=== PATIENT | female | born 1955 | race Hispanic/Latino ===

== ENCOUNTER → 2017-12-13 | Outpatient (CLI) | payer OTHER ==
[~2017-12-13] MED LIST: AMLO5TAB2 PO; ASPI-1012 PO; ATOR40TA71 PO; CHOL50004 PO; CINN500C PO; HYDR-2132 PO; HYDR12.54 PO; ICOS1CAP PO; LINA290C PO; LIRA0.6P SQ; LISI10TA7 PO; PREG100C PO; PROP40TA7 PO; SERT100T12 PO; TRAZ-147 PO
== END | disposition home or self-care (01) ==
LOC: OIH 14:44
PROVIDERS: ATTEND Internal Medicine Cardiovascular Disease
DX: Z13.6 Encounter for screening for cardiovascular disorders (principal)
CPT/HCPCS: 75571

== ENCOUNTER 2023-03-11 06:56 | Day surgery (SDC) | payer OTHER ==
[2023-03-06 09:45] LABS: BASOPHILS % (AUTO) 0.3 % (0.0-5.0); EOSINOPHILS % (AUTO) 4.9 % (0.0-8.0); HEMATOCRIT 39.7 % (36-48); LYMPHOCYTES % (AUTO) 16.9 % (21.0-51.0); MEAN CORPUSCULAR HEMOGLOBIN 34.1 pg (27.0-33.0); MEAN CORPUSCULAR HGB CONC 31.7 g/dL (32.0-36.0); MEAN CORPUSCULAR VOLUME 107.3 fL (79-99); NEUTROPHILS % (AUTO) 71.6 % (40.0-77.0); PLATELET COUNT (AUTO) 121 K/uL (130-400); RED CELL DISTRIBUTION WIDTH 13.5 % (11.0-15.5); WHITE BLOOD COUNT (AUTO) 9.1 K/uL (4.8-10.8)
[2023-03-06 09:58] LABS: ALBUMIN 3.4 g/dL (3.5-5.0); CREATININE 5.5 mg/dL (0.5-1.5); POTASSIUM 4.3 mmol/L (3.5-5.1); TOTAL PROTEIN, SERUM 7.6 g/dL (6.0-8.3)
[2023-03-06 10:05] VITALS: BP 143/79
[2023-03-06 11:08] LABS: INR 0.94 (0.85-1.15); PARTIAL THROMBOPLASTIN TIME 25.9 SEC (26.3-35.5); PROTHROMBIN TIME 10.3 SEC (9.6-11.6)
[2023-03-11] VITALS (18 sets, daily range): BP systolic 87–129; BP diastolic 53–83
[~2023-03-11] VITALS: Ht 154.9 cm; Wt 113.4 kg
[~2023-03-11 06:56] MED LIST changes: +AEC81 PO; -AMLO5TAB2 PO; -ASPI-1012 PO; +ATOR10 PO; -ATOR40TA71 PO; +BUPR-93 PO; -CHOL50004 PO; -CINN500C PO; +DIPH-1242 PO; +FLUT1AER IH; +FOLI1TAB85 PO; +FOLIC ACID PO; -HYDR-2132 PO; -HYDR12.54 PO; +INSU100I24 SQ; -LINA290C PO; -LIRA0.6P SQ; -LISI10TA7 PO; +MONT-39 PO; +PHEN95TA44 PO; -PREG100C PO; +PREG25CA18 PO; +PREG50CA63 PO; +SEMA2PEN SQ; -SERT100T12 PO; +SEVE800T7 PO; -TRAZ-147 PO; +TRAZ-187 PO; +VITAMIN B12 PO
[2023-03-11 07:32] LABS: CREATININE 5.8 mg/dL (0.5-1.5); POTASSIUM 3.7 mmol/L (3.5-5.1)
[2023-03-11] MEDS: CEFAZOLIN SODIUM 2 GM VIAL ONE ×2 (07:48→09:00)
[2023-03-11] MEDS ORDERED: 0.9% NACL 500ML IV.SOLN 500 ML IV ONE (07:49)
[2023-03-11] MEDS ORDERED: PHENYLEPHRINE HCL 10 MG/ML 1ML VIAL IV ONE (08:14)
[2023-03-11] MEDS ORDERED: LIDOCAINE PF 100MG/5ML (2%) SYRINGE 5ML ONE (08:14)
[2023-03-11] MEDS ORDERED: ROCURONIUM 10MG/1ML SYR 10 MG/ML ML ONE (08:14)
[2023-03-11] MEDS ORDERED: PROPOFOL 10 MG/ML 20ML VIAL IV ONE (08:14)
[2023-03-11] MEDS ORDERED: KETAMINE 50MG/ML SYRINGE 50 MG/ML DISP.SYRIN ONE (08:17)
[2023-03-11] MEDS ORDERED: HEPARIN 10,000 UNIT/10ML (1,000 UNIT/ML) VIAL ONE (09:29)
[2023-03-11] MEDS ORDERED: PROTAMINE SULFATE 10 MG/ML 5 ML VIAL ONE (10:26)
[2023-03-11] MEDS ORDERED: PROTAMINE SULFATE 10 MG/ML 25ML VIAL IV ONE (10:27)
[2023-03-11] MEDS ORDERED: NEOSTIGMINE 5MG/5ML SYR IV ONE (10:34)
[2023-03-11] MEDS ORDERED: ONDANSETRON 4MG INJ ONE (10:34)
[2023-03-11] MEDS ORDERED: GLYCOPYRROLATE 1 MG/5 ML SYRINGE ONE (10:34)
[2023-03-11] MEDS ORDERED: FENTANYL CITRATE PF 50 MCG/1 ML 2ML VIAL ONE (11:48)
== END 2023-03-11 13:15 | disposition home or self-care (01) ==
LOC: DAH 06:56
PROVIDERS: ATTEND Student in an Organized Health Care Education/Training Program
DX: E11.22 Type 2 diabetes mellitus with diabetic chronic kidney disease (principal); I12.0 Hypertensive chronic kidney disease with stage 5 chronic kidney disease or end stage renal disease; N18.6 End stage renal disease; Z20.822 Contact with and (suspected) exposure to COVID-19; F41.9 Anxiety disorder, unspecified; F32.A Depression, unspecified; J44.9 Chronic obstructive pulmonary disease, unspecified; E78.5 Hyperlipidemia, unspecified; E66.01 Morbid (severe) obesity due to excess calories; Z99.2 Dependence on renal dialysis; Z86.73 Personal history of transient ischemic attack (TIA), and cerebral infarction without residual deficits; Z98.890 Other specified postprocedural states; Z90.710 Acquired absence of both cervix and uterus; Z96.653 Presence of artificial knee joint, bilateral; Z68.41 Body mass index [BMI] 40.0-44.9, adult; Z79.899 Other long term (current) drug therapy; Z79.82 Long term (current) use of aspirin; Z79.01 Long term (current) use of anticoagulants
CPT/HCPCS: 80053; 85025; 85610; 85730; 86850 ×2; 86900 ×2; 86901 ×2; 87426; 36415 ×2; 93005; 36830; 80048; 82948 ×2; A6260; A4663; J7120; J7040; J3010; J3490 ×2; J2710; J2001; J1644; J2704; J2405; J2370; J0690; A4649 ×3; C1713 ×2; A4215; A4223; A4222; A4221; J2720 ×2

== ENCOUNTER 2023-05-09 17:25 | Inpatient (IN) | payer OTHER ==
[~2023-05-09] VITALS: Ht 152.4 cm; Wt 113.0 kg
[2023-05-09 20:29] LABS: BASOPHILS # (AUTO) 0.02 K/uL (0.00-0.20); BASOPHILS % (AUTO) 0.2 % (0.0-5.0); EOSINOPHILS # (AUTO) 0.25 K/uL (0.00-0.70); HEMATOCRIT 34.4 % (36-48); IMMATURE GRANULOCYTE ABSOLUTE 0.03 K/uL (0-1); LYMPHOCYTES # (AUTO) 1.8 K/uL (1.0-4.8); LYMPHOCYTES % (AUTO) 21.6 % (21.0-51.0); MEAN CORPUSCULAR HEMOGLOBIN 35.5 pg (27.0-33.0); MEAN CORPUSCULAR VOLUME 104.2 fL (79-99); MONOCYTES # (AUTO) 0.6 K/uL (0.1-1.0); MONOCYTES % (AUTO) 6.7 % (3.0-13.0); NEUTROPHILS # (AUTO) 5.6 K/uL (1.8-7.7); NEUTROPHILS % (AUTO) 68.1 % (40.0-77.0); PLATELET COUNT (AUTO) 136 K/uL (130-400); WHITE BLOOD COUNT (AUTO) 8.2 K/uL (4.8-10.8)
[2023-05-09 20:44] LABS: CREATININE 6.2 mg/dL (0.5-1.5); POTASSIUM 4.3 mmol/L (3.5-5.1)
[2023-05-09 20:49] LABS: ALBUMIN 3.3 g/dL (3.5-5.0); BILIRUBIN,TOTAL 0.5 mg/dL (0.2-1.0); TOTAL PROTEIN, SERUM 7.7 g/dL (6.0-8.3)
[2023-05-09] MEDS ORDERED: IOHEXOL 350 MG/ML 100ML INFUS..BTL IV ONE (21:07)
[2023-05-10] VITALS (17 sets, daily range): BP systolic 98–119; BP diastolic 48–66; PULSE 72–89; RESP 16–20; TEMP 97.2; O2SAT 96–98
[2023-05-10] MEDS ORDERED: HYDROCODONE/ACETAMINOPHEN 5/325 MG TAB PO PRN (00:30)
[2023-05-10] MEDS ORDERED: ONDANSETRON 4MG INJ IV PRN (00:30)
[2023-05-10] MEDS ORDERED: MAGNESIUM 2GM PREMIX 50ML 50 ML IV PRN (00:30)
[2023-05-10] MEDS ORDERED: ACETAMINOPHEN 325 MG TAB PO PRN ×2 (00:30)
[2023-05-10] MEDS: HYDROMORPHONE 1 MG INJ IV PRN ×2 (01:06→05:33)
[2023-05-10 03:06] LABS: BASOPHILS # (AUTO) 0.02 K/uL (0.00-0.20); BASOPHILS % (AUTO) 0.2 % (0.0-5.0); EOSINOPHILS # (AUTO) 0.26 K/uL (0.00-0.70); EOSINOPHILS % (AUTO) 3.1 % (0.0-8.0); HEMATOCRIT 30.1 % (36-48); IMMATURE GRANULOCYTE ABSOLUTE 0.06 K/uL (0-1); LYMPHOCYTES % (AUTO) 23.2 % (21.0-51.0); MEAN CORPUSCULAR HEMOGLOBIN 34.9 pg (27.0-33.0); MEAN CORPUSCULAR HGB CONC 33.6 g/dL (32.0-36.0); MEAN CORPUSCULAR VOLUME 104.2 fL (79-99); MONOCYTES # (AUTO) 0.7 K/uL (0.1-1.0); MONOCYTES % (AUTO) 8.4 % (3.0-13.0); NEUTROPHILS # (AUTO) 5.4 K/uL (1.8-7.7); NEUTROPHILS % (AUTO) 64.4 % (40.0-77.0); PLATELET COUNT (AUTO) 116 K/uL (130-400); RED BLOOD CELL COUNT(AUTO) 2.89 MIL/uL (4.00-5.50); RED CELL DISTRIBUTION WIDTH 13.1 % (11.0-15.5); WHITE BLOOD COUNT (AUTO) 8.4 K/uL (4.8-10.8)
[2023-05-10 03:16] LABS: CREATININE 6.3 mg/dL (0.5-1.5); MAGNESIUM 1.8 mg/dL (1.80-2.40); PHOSPHORUS 4.5 mg/dL (2.5-4.9); POTASSIUM 4.2 mmol/L (3.5-5.1)
[2023-05-10 03:20] LABS: SARS-CoV-2, RNA, NAAT NEGATIVE SARS CoV-2 (NEGATIVE)
[2023-05-10 03:47] LABS: INR < 0.93 (0.85-1.15); PARTIAL THROMBOPLASTIN TIME 22.4 SEC (26.3-35.5); PROTHROMBIN TIME 9.9 SEC (9.6-11.6)
[2023-05-10 04:21] LABS: HEMOGLOBIN A1C 5.9 % (4.0-6.0)
[2023-05-10] MEDS: INSULIN HUMULIN R 100 UNIT/ML 3ML SQ SCH ×4 (06:01→21:00)
[2023-05-10] MEDS: PANTOPRAZOLE 40 MG/VIAL IVP SCH (10:51)
[2023-05-10] MEDS ORDERED: HYDROMORPHONE 1 MG INJ IVP PRN (11:00)
[2023-05-10] MEDS: IBUPROFEN 800 MG TAB PO SCH ×2 (11:34→19:42)
[2023-05-10] MEDS: TRAMADOL HCL 50 MG TABLET PO PRN (17:13)
[2023-05-11] VITALS (14 sets, daily range): BP systolic 81–110; BP diastolic 53–81; PULSE 81–100; RESP 16–20; TEMP 97.4; O2SAT 96–97
[2023-05-11] MEDS ORDERED: HEPARIN 5,000 UNIT VIAL IV STA (00:13)
[2023-05-11] MEDS: IBUPROFEN 800 MG TAB PO SCH ×3 (03:09→19:59)
[2023-05-11 05:29] LABS: BASOPHILS # (AUTO) 0.02 K/uL (0.00-0.20); BASOPHILS % (AUTO) 0.3 % (0.0-5.0); EOSINOPHILS # (AUTO) 0.22 K/uL (0.00-0.70); EOSINOPHILS % (AUTO) 3.1 % (0.0-8.0); HEMATOCRIT 27.2 % (36-48); IMMATURE GRANULOCYTE ABSOLUTE 0.03 K/uL (0-1); LYMPHOCYTES # (AUTO) 1.3 K/uL (1.0-4.8); LYMPHOCYTES % (AUTO) 18.9 % (21.0-51.0); MEAN CORPUSCULAR HEMOGLOBIN 34.7 pg (27.0-33.0); MEAN CORPUSCULAR HGB CONC 33.5 g/dL (32.0-36.0); MEAN CORPUSCULAR VOLUME 103.8 fL (79-99); MONOCYTES # (AUTO) 0.7 K/uL (0.1-1.0); MONOCYTES % (AUTO) 9.2 % (3.0-13.0); NEUTROPHILS # (AUTO) 4.8 K/uL (1.8-7.7); NEUTROPHILS % (AUTO) 68.1 % (40.0-77.0); PLATELET COUNT (AUTO) 96 K/uL (130-400); RED BLOOD CELL COUNT(AUTO) 2.62 MIL/uL (4.00-5.50); WHITE BLOOD COUNT (AUTO) 7.1 K/uL (4.8-10.8)
[2023-05-11 05:37] LABS: CREATININE 5.3 mg/dL (0.5-1.5); POTASSIUM 4.1 mmol/L (3.5-5.1)
[2023-05-11] MEDS: INSULIN HUMULIN R 100 UNIT/ML 3ML SQ SCH ×4 (06:34→20:58)
[2023-05-11] MEDS: PANTOPRAZOLE 40 MG/VIAL IVP SCH (09:09)
[2023-05-11] MEDS: MIDODRINE HCL 5 MG TABLET PO SCH ×2 (15:49→21:00)
[2023-05-11] MEDS: TRAMADOL HCL 50 MG TABLET PO PRN (18:02)
[2023-05-11] MEDS ORDERED: HYDROMORPHONE 0.5 MG SYG (0.5MG/0.5ML) IVP ONE (19:00)
[2023-05-11] MEDS: TRAZODONE HCL 100 MG TABLET PO SCH (20:00)
[2023-05-11] MEDS: NYSTATIN 15 GM POWDER TP SCH (21:00)
[2023-05-11] MEDS ORDERED: DIPHENHYDRAMINE HCL 25 MG CAPSULE PO ONE (21:00)
[2023-05-11 23:11] LABS: HEPATITIS B SURFACE ANTIGEN Non-Reactive (Nonreactive)
[2023-05-12] VITALS: BP 118/71; PULSE 93; RESP 20
[2023-05-12] MEDS: IBUPROFEN 800 MG TAB PO SCH ×3 (03:09→19:00)
[2023-05-12 03:22] VITALS: BP 89/47; PULSE 89; RESP 20
[2023-05-12 03:32] VITALS: BP 89/53; PULSE 86; RESP 18
[2023-05-12] MEDS: INSULIN HUMULIN R 100 UNIT/ML 3ML SQ SCH ×4 (07:30→21:00)
[2023-05-12] MEDS: PANTOPRAZOLE 40 MG/VIAL IVP SCH (09:00)
[2023-05-12] MEDS: NYSTATIN 15 GM POWDER TP SCH ×2 (09:00→21:00)
[2023-05-12] MEDS: MIDODRINE HCL 5 MG TABLET PO SCH ×4 (09:00→21:00)
[2023-05-12] MEDS ORDERED: DIPHENHYDRAMINE HCL 25 MG CAPSULE ONE (10:16)
[2023-05-12] MEDS ORDERED: LACTULOSE 20 GM/30 ML UDCUP ONE (17:10)
[2023-05-12 19:20] VITALS: O2SAT 97
[2023-05-12] MEDS: TRAZODONE HCL 100 MG TABLET PO SCH (21:00)
[2023-05-13] VITALS (21 sets, daily range): BP systolic 93–123; BP diastolic 39–79; PULSE 67–101; RESP 18–20; TEMP 98; O2SAT 97
[2023-05-13] MEDS: IBUPROFEN 800 MG TAB PO SCH (03:13)
[2023-05-13] MEDS: INSULIN HUMULIN R 100 UNIT/ML 3ML SQ SCH ×3 (05:29→16:30)
[2023-05-13] MEDS: PANTOPRAZOLE 40 MG/VIAL IVP SCH (09:35)
[2023-05-13] MEDS: MIDODRINE HCL 5 MG TABLET PO SCH ×4 (09:36→20:56)
[2023-05-13] MEDS: NYSTATIN 15 GM POWDER TP SCH (09:45)
[2023-05-13] MEDS ORDERED: LACTULOSE 20 GM/30 ML UDCUP PO ONE (10:00)
[2023-05-13] MEDS ORDERED: BISACODYL 10 MG SUPP.RECT RC ONE (10:00)
[2023-05-13] MEDS ORDERED: TRAM50TA4 PO (11:00)
[2023-05-13] MEDS ORDERED: ARNI120T TP (11:12)
[2023-05-13] MEDS ORDERED: HEPARIN 5,000 UNIT VIAL IV STA (19:03)
[2023-05-13 19:51] LABS: BILIRUBIN,TOTAL 0.4 mg/dL (0.2-1.0); CREATININE 7.4 mg/dL (0.5-1.5); POTASSIUM 4.3 mmol/L (3.5-5.1)
[2023-05-13 19:52] LABS: ALBUMIN 2.6 g/dL (3.5-5.0); HEMATOCRIT 27.5 % (36-48); RED BLOOD CELL COUNT(AUTO) 2.59 MIL/uL (4.00-5.50); TOTAL PROTEIN, SERUM 6.2 g/dL (6.0-8.3); WHITE BLOOD COUNT (AUTO) 7.6 K/uL (4.8-10.8)
[2023-05-13 19:53] LABS: MEAN CORPUSCULAR HEMOGLOBIN 35.1 pg (27.0-33.0); MEAN CORPUSCULAR HGB CONC 33.1 g/dL (32.0-36.0); MEAN CORPUSCULAR VOLUME 106.2 fL (79-99); PLATELET COUNT (AUTO) 107 K/uL (130-400); RED CELL DISTRIBUTION WIDTH 13.2 % (11.0-15.5)
[2023-05-13] MEDS: TRAMADOL HCL 50 MG TABLET PO PRN (20:53)
[2023-05-13] MEDS: TRAZODONE HCL 100 MG TABLET PO SCH (20:53)
[2023-05-13] MEDS ORDERED: BISACODYL 5 MG TABLET.DR PO ONE (21:00)
[2023-05-13] MEDS ORDERED: LACTULOSE 20 GM/30 ML UDCUP ONE (21:01)
== END 2023-05-13 21:45 | disposition home or self-care (01) | DRG 314 ==
LOC: EDH 17:25 → EDHIP 05-10 00:08 → 3DH 05-10 03:23
PROVIDERS: ADMIT Internal Medicine; ATTEND Internal Medicine
PROC: 5A1D70Z Performance of Urinary Filtration, Intermittent, Less than 6 Hours Per Day (ICD-10-PCS; principal; 2023-05-10)
PROC: 5A1D70Z Performance of Urinary Filtration, Intermittent, Less than 6 Hours Per Day (ICD-10-PCS; 2023-05-13)
DX: T82.898A Other specified complication of vascular prosthetic devices, implants and grafts, initial encounter (principal); N18.6 End stage renal disease; I12.0 Hypertensive chronic kidney disease with stage 5 chronic kidney disease or end stage renal disease; Z68.42 Body mass index [BMI] 45.0-49.9, adult; Z20.822 Contact with and (suspected) exposure to COVID-19; E11.22 Type 2 diabetes mellitus with diabetic chronic kidney disease; E78.5 Hyperlipidemia, unspecified; M48.00 Spinal stenosis, site unspecified; J44.9 Chronic obstructive pulmonary disease, unspecified; Y83.8 Other surgical procedures as the cause of abnormal reaction of the patient, or of later complication, without mention of misadventure at the time of the procedure; S40.022A Contusion of left upper arm, initial encounter; E66.01 Morbid (severe) obesity due to excess calories; Z96.653 Presence of artificial knee joint, bilateral; Z79.4 Long term (current) use of insulin; Z79.51 Long term (current) use of inhaled steroids; Z79.82 Long term (current) use of aspirin; Z81.8 Family history of other mental and behavioral disorders; Z82.49 Family history of ischemic heart disease and other diseases of the circulatory system; Z82.5 Family history of asthma and other chronic lower respiratory diseases; Z82.62 Family history of osteoporosis; Z83.3 Family history of diabetes mellitus; Z90.711 Acquired absence of uterus with remaining cervical stump; Y92.89 Other specified places as the place of occurrence of the external cause
CPT/HCPCS: 36415; 80048; 80053; 82948; 83036; 83735; 84100; 85025; 85027; 85610; 85730; 86704; 86706; 86850; 86900; 86901; 87340; 87635; 90935; 93005; 93971; C9113; G0378; J1170; J1644; J1815; Q0163; Q9967

== ENCOUNTER 2023-07-02 11:54 | Day surgery (SDC) | payer OTHER ==
[2023-07-01 09:27] LABS: CREATININE 6.7 mg/dL (0.5-1.5); INR < 0.93 (0.85-1.15); POTASSIUM 4.3 mmol/L (3.5-5.1); PROTHROMBIN TIME 10.6 SEC (9.6-11.6)
[2023-07-01 09:28] LABS: PARTIAL THROMBOPLASTIN TIME 25.6 SEC (26.3-35.5)
[2023-07-01 09:31] LABS: HEMATOCRIT 32.3 % (36-48); MEAN CORPUSCULAR HGB CONC 33.4 g/dL (32.0-36.0); MEAN CORPUSCULAR VOLUME 107.7 fL (79-99); PLATELET COUNT (AUTO) 124 K/uL (130-400); RED CELL DISTRIBUTION WIDTH 12.6 % (11.0-15.5); WHITE BLOOD COUNT (AUTO) 7.7 K/uL (4.8-10.8)
[2023-07-01 09:52] VITALS: BP 137/59; PULSE 66; RESP 18
[~2023-07-02] VITALS: Ht 149.9 cm; Wt 111.7 kg
[2023-07-02] VITALS (18 sets, daily range): BP systolic 128–152; BP diastolic 58–74; PULSE 68–88; RESP 11–24
[~2023-07-02 11:54] MED LIST changes: -AEC81 PO; -DIPH-1242 PO; -FLUT1AER IH; -FOLI1TAB85 PO; -FOLIC ACID PO; +MIDO5TAB4 PO; -PHEN95TA44 PO; -PREG25CA18 PO; +PREG25CA19 PO; -PREG50CA63 PO; +PREG50CA64 PO
[2023-07-02] MEDS ORDERED: 0.9% NACL 500ML IV.SOLN 500 ML IV ONE (12:13)
[2023-07-02] MEDS ORDERED: DEXTROSE 50%-WATER 50 ML DISP.SYRIN IV ONE ×2 (12:20→18:23)
[2023-07-02] MEDS: CEFAZOLIN SODIUM 2 GM VIAL ONE ×2 (12:30→15:37)
[2023-07-02 13:04] LABS: CREATININE 4.7 mg/dL (0.5-1.5); POTASSIUM 4.4 mmol/L (3.5-5.1)
[2023-07-02] MEDS ORDERED: MIDAZOLAM HCL 1 MG/ML 2ML VIAL ONE (14:59)
[2023-07-02] MEDS ORDERED: PROPOFOL 10 MG/ML 20ML VIAL IV ONE (14:59)
[2023-07-02] MEDS ORDERED: FENTANYL CITRATE PF 50 MCG/1 ML 2ML VIAL ONE (15:00)
[2023-07-02] MEDS ORDERED: LIDOCAINE HCL 1% 20 ML VIAL ONE (15:02)
[2023-07-02] MEDS ORDERED: CEFAZOLIN SODIUM 1 GM VIAL ONE (15:03)
[2023-07-02] MEDS ORDERED: BUPIVACAINE/PF 0.5% 30ML VIAL ONE (15:03)
[2023-07-02] MEDS ORDERED: EPHEDRINE SULFATE 50 MG/ML AMPULE ONE ×2 (15:27→16:10)
[2023-07-02] MEDS ORDERED: KETAMINE 50MG/ML SYRINGE 50 MG/ML DISP.SYRIN ONE (15:33)
[2023-07-02] MEDS ORDERED: PROTAMINE SULFATE 10 MG/ML 25ML VIAL IV ONE (16:16)
[2023-07-02] MEDS ORDERED: GLYCOPYRROLATE 1 MG/5 ML SYRINGE ONE (16:18)
[2023-07-02] MEDS ORDERED: PHENYLEPHRINE HCL 10 MG/ML 1ML VIAL IV ONE (16:45)
== END 2023-07-02 18:59 | disposition home or self-care (01) ==
LOC: DAH 11:54
PROVIDERS: ATTEND Thoracic Surgery (Cardiothoracic Vascular Surgery)
DX: T82.868A Thrombosis due to vascular prosthetic devices, implants and grafts, initial encounter (principal); E11.22 Type 2 diabetes mellitus with diabetic chronic kidney disease; N18.6 End stage renal disease; E78.5 Hyperlipidemia, unspecified; F32.A Depression, unspecified; F41.9 Anxiety disorder, unspecified; M81.0 Age-related osteoporosis without current pathological fracture; M19.90 Unspecified osteoarthritis, unspecified site; Z99.2 Dependence on renal dialysis; Z90.710 Acquired absence of both cervix and uterus; Z98.890 Other specified postprocedural states; Y83.2 Surgical operation with anastomosis, bypass or graft as the cause of abnormal reaction of the patient, or of later complication, without mention of misadventure at the time of the procedure; Y92.89 Other specified places as the place of occurrence of the external cause
CPT/HCPCS: 71045; 80048 ×2; 85027; 85610; 85730; 86850; 86900; 86901; 36415 ×2; 93005; 36830; 82948 ×4; A6260; A4663; A6207; A4215 ×2; A4452; J7040; J3010; J0690 ×2; J3490 ×5; J7070 ×2; J2250; J2704; J1644; J2371; A6446; A4649 ×2; C1713 ×2; A4930; C1768; A4223; A4222; A4221; J2720; G0168

== ENCOUNTER 2023-11-28 07:07 | Day surgery (SDC) | payer OTHER ==
[~2023-11-28] VITALS: Ht 149.9 cm; Wt 102.5 kg
[2023-11-28] VITALS (11 sets, daily range): BP systolic 87–134; BP diastolic 48–82; PULSE 64–79; RESP 15–20
[~2023-11-28 07:07] MED LIST changes: +HYDR-3421 PO; -INSU100I24 SQ; -PREG50CA64 PO; -SEMA2PEN SQ; +SEVE800T50 PO; -SEVE800T7 PO
[2023-11-28] MEDS: 0.9%NACL 1000ML 1,000 ML IV ONE (07:36)
[2023-11-28] MEDS: DEXTROSE 50%-WATER 50 ML DISP.SYRIN IV ONE ×2 (07:36→09:19)
[2023-11-28] MEDS ORDERED: PROPOFOL 10 MG/ML 20ML VIAL IV ONE (09:15)
[2023-12-13] MEDS ORDERED: HYDR-3421 PO (05:02)
[2023-12-13] MEDS ORDERED: DIPH50 PO (05:04)
[2023-12-13] MEDS ORDERED: PREG50CA64 PO (05:04)
== END 2023-11-28 13:40 | disposition home or self-care (01) ==
LOC: ENDO 07:07 → DAH 07:07 → ENDO 13:40
PROVIDERS: ATTEND Internal Medicine
DX: R10.11 Right upper quadrant pain (principal); K29.50 Unspecified chronic gastritis without bleeding; K21.00 Gastro-esophageal reflux disease with esophagitis, without bleeding; R93.2 Abnormal findings on diagnostic imaging of liver and biliary tract; K80.20 Calculus of gallbladder without cholecystitis without obstruction; A04.72 Enterocolitis due to Clostridium difficile, not specified as recurrent; R11.2 Nausea with vomiting, unspecified; E78.9 Disorder of lipoprotein metabolism, unspecified; E13.9 Other specified diabetes mellitus without complications; N28.9 Disorder of kidney and ureter, unspecified; E78.00 Pure hypercholesterolemia, unspecified; F41.9 Anxiety disorder, unspecified; F32.A Depression, unspecified; M81.0 Age-related osteoporosis without current pathological fracture; M19.90 Unspecified osteoarthritis, unspecified site; Z86.19 Personal history of other infectious and parasitic diseases; Z82.49 Family history of ischemic heart disease and other diseases of the circulatory system; Z83.3 Family history of diabetes mellitus; Z80.9 Family history of malignant neoplasm, unspecified; Z79.899 Other long term (current) drug therapy; Z90.711 Acquired absence of uterus with remaining cervical stump; Z98.891 History of uterine scar from previous surgery; Z98.890 Other specified postprocedural states
CPT/HCPCS: 43259; 82948 ×5; 43239; J7030 ×2; J7070 ×2; J2704; A4620; A4215 ×2; A4223; A7002; A4222; A4221; A4663; A4606; J3490